=== PATIENT | male | born 1955 | race Caucasian/White ===

== ENCOUNTER 2016-05-31 14:30 | Outpatient (RCR) | payer BC ==
[2015-12-28 02:24] VITALS: BP 142/78
[~2016-05-31 14:30] MED LIST: ACTOS30 MG PO; ENBREL50 MG/ML SC; KETOROLAC TROME10 MG PO; LISINOPRIL/HCTZ1 TA1 PO; METOPROLOL SUCC50 M1 PO; ORPHENADRINE C100 MG PO; PERCOCET 325 MG1 TA2 PO; VICTOZA6 MG/ML SQ; ZOCOR 40MG40 MG PO; ZYLOPRIM 300MG300 MG PO
== END 2016-07-14 10:28 | disposition home or self-care (01) ==
LOC: PT 14:30
DX: M46.22 Osteomyelitis of vertebra, cervical region (principal)

== ENCOUNTER 2018-09-25 19:52 | Emergency (ER) | payer BC ==
[~2018-09-25] VITALS: Ht 177.8 cm; Wt 89.5 kg
[2018-09-25] MEDS ORDERED: CORDARONE200 MG/TAB PO (20:20)
[2018-09-25] MEDS ORDERED: ELIQUIS5 MG PO (20:20)
[2018-09-25] MEDS ORDERED: ATENOLOL25 MG PO (20:21)
[2018-09-25] MEDS ORDERED: FUROSEMIDE40 MG PO (20:21)
[2018-09-25] MEDS ORDERED: ATORVASTATIN CA20 MG PO (20:21)
[2018-09-25] MEDS ORDERED: POTASSIUM CHLO20 ME3 PO (20:22)
[2018-09-25] MEDS ORDERED: OTEZLA30 MG PO (20:23)
[2018-09-25] MEDS ORDERED: JANUVIA 100MG100 MG PO (20:23)
[2018-09-25] MEDS ORDERED: VICTOZA 3-0.6 MG/0.1 SQ (20:24)
[2018-09-25 20:39] LABS: HEMATOCRIT 36.7 % (42.0-52.0); HEMOGLOBIN 11.8 g/dL (13.5-18.0); MEAN CELL VOLUME 90 fl (78-100); MEAN CORPUSCULAR HEMOGLOBIN 29 pg (27-31); MEAN CORPUSCULAR HGB CONC 32 g/dL (33-37); MEAN PLATELET VOLUME 9.5 fl (7.4-10.4); RED BLOOD COUNT 4.06 M/mm3 (4.20-5.60); RED CELL DISTRIBUTION WIDTH 13.7 % (11.5-14.5); WHITE BLOOD COUNT 9.6 K/mm3 (4.8-10.8)
[2018-09-25 20:43] LABS: PLATELET COUNT 687 K/mm3 (130-400)
[2018-09-25 20:52] LABS: ALBUMIN 3.6 g/dL (3.5-5.0); CALCIUM 9.1 mg/dL (8.4-10.2); POTASSIUM 4.8 mmol/L (3.6-5.0); TOTAL BILIRUBIN 0.5 mg/dL (0.2-1.3); TOTAL PROTEIN 7.6 g/dL (6.3-8.2)
[2018-09-25 21:00] LABS: LYMPHOCYTE 13 % (20-51); MONOCYTE 6 % (3-10); NEUTROPHILS 75 % (42-75)
[2018-09-25 21:40] VITALS: BP 139/79
== END 2018-09-25 21:40 | disposition home or self-care (01) ==
LOC: ED 19:52
PROVIDERS: Physician Assistant
DX: E11.9 Type 2 diabetes mellitus without complications (principal); E87.1 Hypo-osmolality and hyponatremia; I48.91 Unspecified atrial fibrillation; I10 Essential (primary) hypertension; M10.9 Gout, unspecified; F17.290 Nicotine dependence, other tobacco product, uncomplicated; Z79.84 Long term (current) use of oral hypoglycemic drugs

== ENCOUNTER 2021-08-21 15:30 | Emergency (ER) | payer BC ==
[~2021-08-21] VITALS: Ht 177.8 cm; Wt 89.5 kg
[~2021-08-21 15:30] MED LIST changes: +ATENOLOL25 MG PO; +ATORVASTATIN CA20 MG PO; +CORDARONE200 MG/TAB PO; +ELIQUIS5 MG PO; +FUROSEMIDE40 MG PO; +JANUVIA 100MG100 MG PO; +OTEZLA30 MG PO; +POTASSIUM CHLO20 ME3 PO; +VICTOZA 3-0.6 MG/0.1 SQ
[2021-08-21 16:57] VITALS: BP 133/74
== END 2021-08-21 17:00 | disposition home or self-care (01) ==
LOC: ED 15:30
DX: S61.213A Laceration without foreign body of left middle finger without damage to nail, initial encounter (principal); W26.9XXA Contact with unspecified sharp object(s), initial encounter

== ENCOUNTER → 2021-12-24 | Outpatient (CLI) | payer BC | LOC: RAD 07:57 | DX: K76.0 Fatty (change of) liver, not elsewhere classified (principal); R93.2 Abnormal findings on diagnostic imaging of liver and biliary tract ==

== ENCOUNTER → 2022-07-23 | Outpatient (CLI) | payer BC | LOC: RAD 09:00 | DX: K76.0 Fatty (change of) liver, not elsewhere classified (principal); R93.2 Abnormal findings on diagnostic imaging of liver and biliary tract ==

== ENCOUNTER 2022-12-21 08:00 | Outpatient (RCR) | payer BC | END 2023-01-20 | disposition home or self-care (01) | LOC: PT | DX: R07.81 Pleurodynia (principal) ==

== ENCOUNTER → 2023-03-22 | Outpatient (CLI) | payer BC | LOC: RAD 07:52 | DX: K76.0 Fatty (change of) liver, not elsewhere classified (principal); R93.2 Abnormal findings on diagnostic imaging of liver and biliary tract ==

== ENCOUNTER → 2023-07-14 | Outpatient (CLI) | payer BC | LOC: RAD 11:51 | DX: M17.0 Bilateral primary osteoarthritis of knee (principal); M25.461 Effusion, right knee ==

== ENCOUNTER → 2023-08-04 | Outpatient (CLI) | payer BC | LOC: RAD 13:41 | DX: R05.9 Cough, unspecified (principal) ==

== ENCOUNTER → 2024-02-22 | Outpatient (CLI) | payer BC | LOC: RAD 08:21 | DX: Z01.818 Encounter for other preprocedural examination (principal) ==

== ENCOUNTER 2024-03-15 08:00 | Outpatient (RCR) | payer BC | END 2024-03-22 | LOC: PT | DX: Z96.653 Presence of artificial knee joint, bilateral (principal) ==

== ENCOUNTER → 2024-07-05 | Day surgery (SDC) | payer BC ==
[~2024-07-05] MED LIST changes: +Balanced Salt Ophth Irrig 15 ML BOTTLE *BULK OP SCH; +Cyclopentolate 2% Ophth Soln 1 BOTTLE *BULK OP SCH; +EPINEPHrine 1 MG/ML (1:1000) 1 ML AMP IR SCH; +Ketorolac 0.5% Ophth Soln 5 ML Bottle *BULK OP SCH; +Midazolam 2 MG/2 ML VIAL IV ONE; +Phenylephrine 10% Ophth Soln 5 ML BOTTLE *BULK OP SCH; +Polymyxin B Sulfate/Trimethoprim Ophth Soln 10 ML BOTTLE *BULK OP SCH; +Proparacaine 0.5% Ophth Soln 15 ML BOTTLE *BULK OP SCH; +Tropicamide 1% Ophth Soln Bottle *BULK OP SCH; +Trypan Blue 0.06% Ophth Soln 0.5 ML SYRINGE IO SCH
== END | disposition home or self-care (01) ==
LOC: MSO 07:35
DX: H25.811 Combined forms of age-related cataract, right eye (principal); Z79.01 Long term (current) use of anticoagulants
CPT/HCPCS: 00142; J0171; J2250; V2632